=== PATIENT | female | born 1990 | race African-American/Black ===

== ENCOUNTER 2022-02-02 08:57 | Emergency (ER) | payer MEDICAID | END 2022-02-02 10:00 | disposition home or self-care (01) | LOC: MW.ED 08:57 | DX: M26.601 Right temporomandibular joint disorder, unspecified (principal) | CPT/HCPCS: 99282; 99283 ==

== ENCOUNTER 2022-05-22 23:49 | Emergency (ER) | payer SELFPAY ==
[2022-05-23] MEDS ORDERED: Ketorolac 30 MG/ML SDV IM ONE (00:21)
== END 2022-05-23 01:12 | disposition home or self-care (01) ==
LOC: MW.ED 23:49
DX: S57.81XA Crushing injury of right forearm, initial encounter (principal); W23.0XXA Caught, crushed, jammed, or pinched between moving objects, initial encounter
CPT/HCPCS: 73090; 73130; 96372; 99283; J1885

== ENCOUNTER 2022-10-04 17:53 | Emergency (ER) | payer SELFPAY | END 2022-10-04 19:24 | disposition left against medical advice (07) | LOC: MW.ED 17:53 | DX: Z53.8 Procedure and treatment not carried out for other reasons (principal) | CPT/HCPCS: 93005 ==

== ENCOUNTER 2022-10-06 09:13 | Emergency (ER) | payer SELFPAY ==
[2022-10-06] MEDS ORDERED: Sodium Chloride 0.9% 1,000 ML IV ONE (09:22)
[2022-10-06 10:23] LABS: BLOOD UREA NITROGEN,BUN 9 mg/dL (7.0-18.0); CARBON DIOXIDE,CO2 24.2 mmol/L (21.0-32.0); CHLORIDE,CL 102 mmol/L (98-107); GLUCOSE RANDOM 96 mg/dL (74-106); POTASSIUM,K 3.4 mmol/L (3.5-5.1); SODIUM,NA 140 mmol/L (136-145)
[2022-10-06 10:40] LABS: CORONAVIRUS COVID-19 NAA NEGATIVE (NEGATIVE); INFLUENZA A NAA NEGATIVE (NEGATIVE); INFLUENZA B NAA NEGATIVE (NEGATIVE)
[2022-10-06 10:43] LABS: ESTIMATED GFR 118 mL/min (>60)
[2022-10-06] MEDS ORDERED: Iopamidol 755 MG/ML 500 ML Multipack Bottle IVPUSH STA (11:54)
== END 2022-10-06 14:00 | disposition home or self-care (01) ==
LOC: MW.ED 09:13
DX: R07.89 Other chest pain (principal); R42 Dizziness and giddiness; R53.1 Weakness; Z20.822 Contact with and (suspected) exposure to COVID-19
CPT/HCPCS: 0240U; 36415; 70450; 71045; 71275; 80053; 83735; 84443; 84484; 84703; 85025; 85379; 93005; 96360; 99285; J7030; Q9967; 93010; 99284